=== PATIENT | female | born 1950 | race Caucasian/White ===

== ENCOUNTER 2016-07-02 10:20 | Outpatient (CLI) | payer MEDICARE, BC ==
[~2016-07-02] VITALS: Ht 162.6 cm; Wt 65.9 kg
[~2016-07-02 10:20] MED LIST: CARDIZEM CD120 MG PO; LIPITOR40 MG PO; LOW DOSE ASPIRI81 M1 PO; NEXIUM40 MG PO
[2016-07-02 11:24] VITALS: BP 125/71; Ht 162.6 cm; Wt 65.9 kg
--- NOTE | 2016-07-02 11:34 | NUR ---
1118- PROLIA INJECTION TO LEFT ARM LOT#: [id number] EXP:09/21
== END 2016-07-02 11:34 | disposition home or self-care (01) ==
LOC: D.OPS 10:20
DX: M81.0 Age-related osteoporosis without current pathological fracture (principal)

== ENCOUNTER → 2016-10-23 16:38 | Outpatient (CLI) | payer MEDICARE, BC ==
[2016-07-02 11:24] VITALS: BMI 24.9
== END | disposition home or self-care (01) ==
LOC: D.MAMMO 14:45
DX: Z12.31 Encounter for screening mammogram for malignant neoplasm of breast (principal)

== ENCOUNTER 2017-05-13 13:00 | Outpatient (CLI) | payer MEDICARE, BC ==
[~2017-05-13] VITALS: Ht 165.1 cm; Wt 64.5 kg
[2017-05-13 13:50] VITALS: BP 137/79; Ht 165.1 cm; Wt 64.5 kg
== END 2017-05-13 13:55 | disposition home or self-care (01) ==
LOC: D.OPS 13:00
DX: M81.0 Age-related osteoporosis without current pathological fracture (principal)

== ENCOUNTER → 2017-12-21 18:12 | Outpatient (CLI) | payer MEDICARE, BC ==
[2017-05-13 13:50] VITALS: BMI 23.6
== END | disposition home or self-care (01) ==
LOC: D.MAMMO 11-12 13:45
DX: Z12.31 Encounter for screening mammogram for malignant neoplasm of breast (principal)

== ENCOUNTER 2018-03-24 14:48 | Outpatient (CLI) | payer MEDICARE, BC ==
[~2018-03-24] VITALS: Ht 165.1 cm; Wt 67.7 kg
[2018-03-24 15:13] VITALS: BP 118/64; Ht 165.1 cm; Wt 67.7 kg
== END 2018-03-24 15:39 | disposition home or self-care (01) ==
LOC: D.OPS 14:48
DX: M81.0 Age-related osteoporosis without current pathological fracture (principal); Z01.812 Encounter for preprocedural laboratory examination